=== PATIENT | female | born 1965 | race Hispanic/Latino ===

== ENCOUNTER → 2023-11-18 | Outpatient (CLI) | payer BC, OTHER | END | disposition home or self-care (01) | LOC: RAH 13:50 | PROVIDERS: ATTEND Internal Medicine | DX: R06.02 Shortness of breath (principal) | CPT/HCPCS: 71250 ==

== ENCOUNTER 2024-08-08 06:58 | Day surgery (SDC) | payer BC ==
[2024-08-08] VITALS (10 sets, daily range): BP systolic 90–140; BP diastolic 47–85; PULSE 68–79; RESP 15–17; TEMP 97.3–97.9
[~2024-08-08] VITALS: Ht 160 cm; Wt 68.0 kg
[2024-08-08] MEDS ORDERED: ESZO2TAB31 PO (07:58)
[2024-08-08] MEDS ORDERED: ESCI20TA38 PO (07:58)
[2024-08-08] MEDS ORDERED: METO5TAB2 PO (07:58)
[2024-08-08] MEDS ORDERED: GABA-529 PO (07:58)
[2024-08-08] MEDS ORDERED: OMEP40CA21 PO (07:58)
[2024-08-08] MEDS ORDERED: HYDR200T75 PO (07:58)
[2024-08-08] MEDS ORDERED: CELE-125 PO (07:58)
[2024-08-08] MEDS: 0.9%NACL 1000ML 1,000 ML IV ONE (08:05)
[2024-08-08] MEDS ORDERED: LIDOCAINE PF 100MG/5ML (2%) SYRINGE 5ML ONE (09:16)
[2024-08-08] MEDS ORDERED: proPOFol 10 MG/ML 20ML VIAL IV ONE (09:16)
--- NOTE | 2024-08-08 10:26 | OP ---
Operative Note: DATE OF PROCEDURE: 08/08/24 SURGEON: LACEY SKINNER MD LIME TRIMMER: [] ANESTHESIA: [] Mac ANESTHESIOLOGIST/HEALTH TYPE TECHNICIAN: [] PREOPERATIVE DIAGNOSIS: [] GERD POSTOPERATIVE DIAGNOSIS: [] The same SYNOPSIS: [] PROCEDURE: [] Upper endoscopy with biopsy ESTIMATED BLOOD LOSS: [] INDICATIONS: [] DESCRIPTION OF PROCEDURE: []With the patient in conscious sedation I inserted the endoscope through the mouth. We advanced this to the esophagus was completely normal. Z-line was at 40 cm. We entered the stomach and insufflated with air I was able to visualize the pylorus and placed the endoscope through the second portion of the duodenum. There was normal anatomy and no pathology. I retrieved the scope and a saw the stomach there was completely normal in the antrum. I retroflexed it and examined the body and fundus and there was no pathology. There was no hiatal hernia seen. I took a couple of biopsies from the antrum. No pathology was seen there. Before retrieving the scope I suctioned all the fluid and air. Procedure was completed without any complication. LACEY SKINNER MD Aug 08, 2024 10:26
--- NOTE | 2024-08-08 10:32 | NUR ---
Full and complete discharge instructions given to Patient and Family both verbally and in writing. Explained GI procedure precautions and follow up. All questions answered. PIV removed with catheter tip intact. Home with Family W/C to POV.
== END 2024-08-08 10:38 | disposition home or self-care (01) ==
LOC: ENDO 06:58 → DAH 06:58 → ENDO 10:38
PROVIDERS: ATTEND Surgery
DX: K21.00 Gastro-esophageal reflux disease with esophagitis, without bleeding (principal); K29.50 Unspecified chronic gastritis without bleeding; R10.13 Epigastric pain; R10.9 Unspecified abdominal pain; M19.90 Unspecified osteoarthritis, unspecified site; E66.9 Obesity, unspecified; Z79.899 Other long term (current) drug therapy; Z98.49 Cataract extraction status, unspecified eye; Z98.890 Other specified postprocedural states; Z68.26 Body mass index [BMI] 26.0-26.9, adult
CPT/HCPCS: 88305; 88312; 43239; J7030; J2003; J2704; A4620; A4215; J3490